=== PATIENT | male | born 1970 | race Caucasian/White ===

== ENCOUNTER 2016-12-17 09:32 | Emergency (ER) | payer MEDICAID ==
[2016-05-28 01:46] VITALS: BMI 21.1
[~2016-12-17 09:32] MED LIST: CYCLOBENZAPRINE10 MG PO; DILANTIN100 MG PO; ESGIC TABLET1 TAB PO; HYDROCODONE-APA1 TAB PO; IBUPROFEN400 MG PO; KLONOPIN1 MG PO; MEDROL DOSE PACK4 MG PO; MOBIC7.5 MG PO; PERCOCET 10/3251 TA1 PO; SOMA350 MG PO; STRATTERA40 MG PO; TUMS500 MG PO; ZYPREXA20 MG PO
== END 2016-12-17 13:19 | disposition home or self-care (01) ==
LOC: D.ER 09:32
DX: M54.6 Pain in thoracic spine (principal); F17.200 Nicotine dependence, unspecified, uncomplicated; F31.9 Bipolar disorder, unspecified; M50.30 Other cervical disc degeneration, unspecified cervical region

== ENCOUNTER 2017-08-06 07:59 | Emergency (ER) | payer MEDICAID ==
[2016-05-28 01:46] VITALS: BMI 21.1
== END 2017-08-06 09:55 | disposition home or self-care (01) ==
LOC: D.ER 07:59
DX: S83.91XA Sprain of unspecified site of right knee, initial encounter (principal); X58.XXXA Exposure to other specified factors, initial encounter; Y93.89 Activity, other specified; Y92.029 Unspecified place in mobile home as the place of occurrence of the external cause

== ENCOUNTER 2018-01-14 10:41 | Emergency (ER) | payer MEDICAID ==
[2016-05-28 01:46] VITALS: BMI 21.1
== END 2018-01-14 11:54 | disposition home or self-care (01) ==
LOC: D.ER 10:41
DX: M50.30 Other cervical disc degeneration, unspecified cervical region (principal); M62.838 Other muscle spasm

== ENCOUNTER 2018-01-20 15:58 | Emergency (ER) | payer MEDICAID ==
[2016-05-28 01:46] VITALS: BMI 21.1
== END 2018-01-20 18:10 | disposition left against medical advice (07) ==
LOC: D.ER 15:58
DX: M54.2 Cervicalgia (principal)

== ENCOUNTER 2018-01-21 08:18 | Emergency (ER) | payer MEDICAID ==
[2016-05-28 01:46] VITALS: BMI 21.1
== END 2018-01-21 10:33 | disposition left against medical advice (07) ==
LOC: D.ER 08:18
DX: Z76.5 Malingerer [conscious simulation] (principal)

== ENCOUNTER 2018-09-26 09:42 | Emergency (ER) | payer MEDICARE ==
[~2018-09-26] VITALS: Ht 185.4 cm; Wt 72.7 kg
[2018-09-26 09:44] VITALS: Ht 185.4 cm; Wt 72.7 kg
[2018-09-26] MEDS ORDERED: SEROQUEL400 MG PO (09:46)
[2018-09-26] MEDS ORDERED: CYCLOBENZAPRINE10 MG PO (11:07)
[2018-09-26] MEDS ORDERED: HYDROCODON-ACE1 EAC7 PO (11:07)
[2018-09-26 11:25] VITALS: BP 142/60
== END 2018-09-26 11:26 | disposition home or self-care (01) ==
LOC: D.ER 09:42
DX: S29.012A Strain of muscle and tendon of back wall of thorax, initial encounter (principal); X58.XXXA Exposure to other specified factors, initial encounter; Y93.89 Activity, other specified; Y92.019 Unspecified place in single-family (private) house as the place of occurrence of the external cause; G40.909 Epilepsy, unspecified, not intractable, without status epilepticus; F17.200 Nicotine dependence, unspecified, uncomplicated

== ENCOUNTER 2019-02-16 08:41 | Emergency (ER) | payer MEDICARE ==
[~2019-02-16] VITALS: Ht 185.4 cm; Wt 77.3 kg
[~2019-02-16 08:41] MED LIST changes: +HYDROCODON-ACE1 EAC7 PO; +SEROQUEL400 MG PO
[2019-02-16 08:52] VITALS: Ht 185.4 cm; Wt 77.3 kg
[2019-02-16] MEDS ORDERED: IBUPROFEN800 MG PO (09:26)
[2019-02-16] MEDS ORDERED: ACETAMINOPHEN500 M1 PO (09:26)
[2019-02-16] MEDS ORDERED: CYCLOBENZAPRINE10 MG PO (09:26)
[2019-02-16 10:08] VITALS: BP 132/94
== END 2019-02-16 10:05 | disposition home or self-care (01) ==
LOC: D.ER 08:41
DX: M54.5 Low back pain (principal); M79.18 Myalgia, other site

== ENCOUNTER 2019-12-16 08:54 | Emergency (ER) | payer MEDICARE ==
[~2019-12-16] VITALS: Ht 185.4 cm; Wt 79.5 kg
[~2019-12-16 08:54] MED LIST changes: +ACETAMINOPHEN500 M1 PO; +IBUPROFEN800 MG PO
[2019-12-16 09:01] VITALS: BP 141/88; Ht 185.4 cm; Wt 79.5 kg
[2019-12-16] MEDS ORDERED: CYCLOBENZAPRINE10 MG PO (09:58)
[2019-12-16] MEDS ORDERED: IBUPROFEN800 MG PO (09:58)
[2019-12-16] MEDS ORDERED: ACETAMINOPHEN500 M1 PO (09:58)
== END 2019-12-16 10:14 | disposition home or self-care (01) ==
LOC: D.ER 08:54
DX: G89.29 Other chronic pain (principal); M54.5 Low back pain